=== PATIENT | female | born 1960 | race Caucasian/White ===

== ENCOUNTER 2016-06-19 22:16 | Inpatient (IN) ==
[2016-06-19 23:02] LABS: Basophils # 0.1 K/mcL (0.0-0.2); Basophils % 0.8 %; Eosinophils # 0.2 K/mcL (0.0-0.6); Hematocrit 41.9 % (35.3-44.9); Immature Granulocytes % 0.4 % (0-4); Lymphocytes # 4.7 K/mcL (0.6-4.6); Lymphocytes % 39.5 %; Mean Corpuscular HGB Conc 33.4 g/dL (31.6-35.5); Mean Corpuscular Hemoglobin 29.1 pg (28.0-33.3); Mean Corpuscular Volume 87.1 fL (83.0-100.0); Mean Platelet Volume 10.8 fL (9.4-12.4); Monocytes # 0.8 K/mcL (0.0-1.3); Monocytes % 6.5 %; Neutrophils # 6.1 K/mcL (1.6-8.9); Platelet Count 313 K/mcL (140-400); Red Blood Count 4.81 M/mcL (3.82-4.97); Red Cell Distribution Width 12.9 % (11.5-14.5); Segmented Neutrophils % 50.8 %
[2016-06-19 23:08] LABS: Prothrombin Time 11.1 Seconds (9.4-12.1)
[2016-06-19 23:10] LABS: Activated Partial Thrombo Time 25.1 Seconds (26.0-36.0)
[2016-06-19 23:18] LABS: Alanine Aminotransferase 10 Units/L (0-55); Albumin 3.1 g/dL (3.5-5.0); Albumin/Globulin Ratio 0.6 (1.1-2.2); Alkaline Phosphatase 67 Units/L (38-126); Aspartate Amino Transferase 17 Units/L (5-34); BUN/Creatinine Ratio 6 (6-26); Bilirubin,Total 0.3 mg/dL (0.2-1.2); Calcium 8.7 mg/dL (8.6-10.8); Carbon Dioxide 37 mEq/L (19-29); Chloride 90 mEq/L (98-109); Globulin 4.8 g/dL (2.4-3.5); Glucose 98 mg/dL (70-99); Osmolality,Calculated 285 (280-300); Sodium 139 mEq/L (136-145); Total Protein 7.9 g/dL (6.0-8.3); eGFR For African Americans > 60 (> 60); eGFR For Non-African Americans > 60 (> 60)
[2016-06-19 23:26] LABS: Blood Urea Nitrogen 4 mg/dL (7-20); Potassium 2.3 mEq/L (3.5-4.5)
[2016-06-19] MEDS ORDERED: Potassium Chloride 40 MEQ, Lidocaine 1% 2 ML in D5% in Water 500 ML IVPB ONE (23:31)
[2016-06-19 23:36] LABS: Magnesium 1.8 mg/dL (1.6-2.6)
--- NOTE | 2016-06-19 23:49 | Emergency Department Note ---
Disposition Clinical Impression: Hypokalemia Disposition: Admitted As Inpatient Condition: Good Referrals: Asad Tinajero PAC [Primary Care Provider] - Forms: ED Satisfaction Letter General Adult HPI - General Chief complaint: ED Upper Respiratory Infection Stated complaint: "Amanda had this cold for 3 months"//Chest congestion Time Seen by Provider: 06/19/16 22:36 Source: patient Limitations: no limitations Nursing Notes Reviewed: Yes Vital Signs Reviewed: Yes - History of Present Illness HPI Narrative: Patient presents complaint of cough and congestion shortness of breath has been going on for 3 months. Patient states feels like she has a cold that she just cannot shake. Patient denies chest pain denies fevers and chills. Patient is a cough this been nonproductive. Patient does admit to smoking but has decreased smoking secondary to symptoms. Patient denies any aggravating or alleviating factors associated. Pain Scale: 0 - Related Data Home Medications Medication Instructions Recorded Confirmed Diazepam [Valium] 5 mg PO 11/02/14 11/02/14 [place] 7.5-325 mg 11/02/14 11/02/14 Venlafaxine XR (24 HR) [Effexor XR] 11/02/14 11/02/14 Allergies Allergy/AdvReac Type Severity Reaction Status Date / Time No Known Allergies Allergy Verified 08/06/15 11:23 All systems ED: reviewed and negative except as stated. Past Medical History - Past Medical History Source: patient Medical history: Reports: hyperlipidemia, other Surgical history: Reports: hysterectomy Psychiatric history: Reports: depression, PTSD [employer] history: Reports: no [employer] history - Social History Smoking Status: Current every day smoker Smokeless Tobacco Status: No Alcohol use: Reports: none Drug use: Reports: none Physical Exam - General Limitations: no limitations General appearance: alert - Head Head exam: atraumatic, normocephalic, normal inspection - Eye Eye exam: Present: normal appearance, PERRL, EOMI - ENT ENT exam: normal exam, normal oropharynx, mucous membranes moist - Neck Neck exam: Present: normal inspection, full ROM, trachea midline - Chest Chest inspection: Present: normal inspection, symmetric chest wall rise - Respiratory Respiratory exam: Present: wheezes (mild diffuse wheezing) - Cardiovascular Cardiovascular exam: Present: regular rate, normal rhythm, normal heart sounds - Abdominal Exam Abdominal exam: Present: soft, Non-Tender. Absent: tenderness, distention, guarding, rebound, rigidity - Extremities Exam Extremities exam: Present: normal inspection, full ROM. Absent: tenderness, pedal edema - Back Exam Back exam: Present: normal inspection, full ROM. Absent: tenderness - Neurological Exam Neurological exam: Present: alert, oriented X3 - Psychiatric Psychiatric exam: Present: normal affect, normal mood - Skin Skin exam: Present: warm, dry, intact, normal color Course Vital Signs Temperature 97.4 F L 06/19/16 22:28 Pulse Rate 108 06/19/16 22:28 Respiratory Rate 14 06/19/16 22:28 Blood Pressure 147/81 06/19/16 22:28 O2 Sat by Pulse Oximetry 92 L 06/19/16 22:28 Temperature 97.4 F L 06/19/16 22:28 Pulse Rate 86 06/20/16 00:46 Respiratory Rate 22 06/20/16 00:46 Blood Pressure 131/75 06/20/16 00:46 O2 Sat by Pulse Oximetry 98 06/20/16 00:46 Oxygen Delivery Oxygen Delivery Nasal Cannula Medical Decision Making - Lab Data Result diagrams: 06/19/16 22:54 06/19/16 22:54 Lab Results 06/19/16 06/19/16 06/19/16 Range/Units 22:54 22:54 22:54 WBC 11.9 H (4.3-11.1) K/mcL RBC 4.81 (3.82-4.97) M/mcL Hgb 14.0 (11.5-15.4) g/dL Hct 41.9 (35.3-44.9) % MCV 87.1 (83.0-100.0) fL MCH 29.1 (28.0-33.3) pg MCHC 33.4 (31.6-35.5) g/dL RDW 12.9 (11.5-14.5) % Plt Count 313 (140-400) K/mcL MPV 10.8 (9.4-12.4) fL Immature Gran % 0.4 (0-4) % Seg Neutrophils % 50.8 % Lymphocytes % 39.5 % Monocytes % 6.5 % Eosinophils % 2.0 % Basophils % 0.8 % Neutrophils # 6.1 (1.6-8.9) K/mcL Lymphocytes # 4.7 H (0.6-4.6) K/mcL Monocytes # 0.8 (0.0-1.3) K/mcL Eosinophils # 0.2 (0.0-0.6) K/mcL Basophils # 0.1 (0.0-0.2) K/mcL PT 11.1 (9.4-12.1) Seconds INR 1.0 APTT 25.1 L (26.0-36.0) Seconds D-Dimer 764 H (0-500) ng/mLFEU Sodium 139 (136-145) mEq/L Potassium 2.3 L* (3.5-4.5) mEq/L Chloride 90 L (98-109) mEq/L Carbon Dioxide 37 H (19-29) mEq/L BUN 4 L (7-20) mg/dL Creatinine 0.69 (0.57-1.11) mg/dL Est GFR ( Amer) > 60 (> 60) Est GFR (Non-Af Amer) > 60 (> 60) BUN/Creatinine Ratio 6 (6-26) Glucose 98 (70-99) mg/dL Calculated Osmolality 285 (280-300) Lactic Acid (0.5-2.2) mmol/L Calcium 8.7 (8.6-10.8) mg/dL Magnesium 1.8 (1.6-2.6) mg/dL Total Bilirubin 0.3 (0.2-1.2) mg/dL AST 17 (5-34) Units/L ALT 10 (0-55) Units/L Alkaline Phosphatase 67 (38-126) Units/L Troponin I (0-0.03) ng/mL B-Natriuretic Peptide (0-100) pg/mL Serum Total Protein 7.9 (6.0-8.3) g/dL Albumin 3.1 L (3.5-5.0) g/dL Globulin 4.8 H (2.4-3.5) g/dL Albumin/Globulin Ratio 0.6 L (1.1-2.2) 06/19/16 06/19/16 06/19/16 Range/Units 22:54 22:54 22:54 WBC (4.3-11.1) K/mcL RBC (3.82-4.97) M/mcL Hgb (11.5-15.4) g/dL Hct (35.3-44.9) % MCV (83.0-100.0) fL MCH (28.0-33.3) pg MCHC (31.6-35.5) g/dL RDW (11.5-14.5) % Plt Count (140-400) K/mcL MPV (9.4-12.4) fL Immature Gran % (0-4) % Seg Neutrophils % % Lymphocytes % % Monocytes % % Eosinophils % % Basophils % % Neutrophils # (1.6-8.9) K/mcL Lymphocytes # (0.6-4.6) K/mcL Monocytes # (0.0-1.3) K/mcL Eosinophils # (0.0-0.6) K/mcL Basophils # (0.0-0.2) K/mcL PT (9.4-12.1) Seconds INR APTT (26.0-36.0) Seconds D-Dimer (0-500) ng/mLFEU Sodium (136-145) mEq/L Potassium (3.5-4.5) mEq/L Chloride (98-109) mEq/L Carbon Dioxide (19-29) mEq/L BUN (7-20) mg/dL Creatinine (0.57-1.11) mg/dL Est GFR ( Amer) (> 60) Est GFR (Non-Af Amer) (> 60) BUN/Creatinine Ratio (6-26) Glucose (70-99) mg/dL Calculated Osmolality (280-300) Lactic Acid 1.6 (0.5-2.2) mmol/L Calcium (8.6-10.8) mg/dL Magnesium (1.6-2.6) mg/dL Total Bilirubin (0.2-1.2) mg/dL AST (5-34) Units/L ALT (0-55) Units/L Alkaline Phosphatase (38-126) Units/L Troponin I 0.01 (0-0.03) ng/mL B-Natriuretic Peptide < 10 (0-100) pg/mL Serum Total Protein (6.0-8.3) g/dL Albumin (3.5-5.0) g/dL Globulin (2.4-3.5) g/dL Albumin/Globulin Ratio (1.1-2.2) - Radiology Data Radiology results reviewed: Yes I reviewed the patient's radiology results. Chest X-Ray 06/19/16 22:33 IMPRESSION: Chronic pleural thickening at the left lung base, stable. No acute cardiopulmonary disease. D/ / Shelton Washington MD / Shelton Washington MD Interpreting Provider: Shelton Washington MD Chest CTA 06/20/16 23:30 IMPRESSION: 1. No evidence of pulmonary embolism or acute pulmonary abnormality. 2. Two mildly enlarged right hilar lymph nodes. D/ / Joseluis Inman MD / Joseluis Inman MD Interpreting Provider: Joseluis Inman MD - EKG Data EKG #1 EKG attestation: Yes I reviewed and interpreted this EKG. EKG results narrative: Mild ST depression in inferior leads when compared to previous EKG performed November 2014 EKG shows normal: sinus rhythm Rate: normal Rhythm: NSR Critical Care Time Total Critical Care Time: 30 Attestation: Critical care performed: Time is exclusive of separately billable procedures. Time includes: direct patient care, patient reassessment, coordination of patient care, interpretation of data (laboratory data, radiology data, and respiratory data), review of patient's medical records, medical consultation and documentation of patient care. Procedures included in critical care time: Procedures excluded from critical care time:
--- NOTE | 2016-06-20 01:59 | Internal Med History&Physical ---
<Demarco Starkey - Last Filed: 06/20/16 03:14> Date of Encounter: 06/20/16 Time of Encounter: 01:20 Assessment and Plan (1) Hypokalemia Current visit: Yes Status: Acute Patient presents with a potassium of 2.3, likely contributing to her described fatigue over the last couple months. Although she has been having some fatigue , she denies any weakness, palpitations, or dizziness. This is suggestive that the process causing her loss of potassium is more chronic in nature than it is acute. She denies diuretic usage, denies recent diarrhea, denies recent gastroenteritis , and does not appear to have any overt sign of possible GI losses of potassium. Although chest x-ray and CTA were negative for acute process, pleural thickening and mild hilar lymphadenopathy were noted. With her history of smoking there is a possibility of a paraneoplastic process causing excess secretion of mineralocorticoid. She has been having some hypertension, and her EKG showed general T-wave flattening in 1 U wave in one beat, and one lead. Lab work showed potassium of 2.3, chloride of 90, and serum bicarbonate of 37. Because of the suspicion of chronic CO2 retention with metabolic compensation, is difficult to interpret her bicarbonate level in relation to her hypokalemia, though a renal tubular acidosis is not out of the question (and might be contributing) more lab work will need to be done. With a constellation of hypokalemia and hypertension there is also concern for hyperaldosteronism. She also states that her brother has had some sort of electrolyte deficiency that led to him being on life support for a period of time. With this information the possibility of a familial aberrant receptor in the renal tubules is a possibility as well. Patient received 40 mEq IV and 40 mEq by mouth potassium emergency department We will recheck potassium levels in the morning, and replete potassium as indicated We will recheck magnesium in the morning We will place patient on telemetry because of concern of electrolyte abnormalities We will obtain urine electrolytes studies including: Creatinine, potassium, sodium We will also obtain urine protein creatinine ratio, microalbumin, and UA We will obtain aldosterone, cortisol, TSH, and renin activity Consider nephrology consult if workup indicates renal tubular acidosis contribution to hypokalemia (2) Hypoxia Current visit: Yes Status: Acute Patient reports difficulty breathing and cough for the past 3 months, with apparent worsening in the past week and a half. She states that her difficulty breathing is exacerbated by cold matter cough is nonproductive (release productive of clear mucus). She does report having restarted smoking 2-3 years ago of 1 pack per day, after having previously quit 20+ years ago. Patient subjectively has difficulty breathing, and has been shown to have oxygen saturation in the low 90s while on 2 L nasal cannula (patient does not use supplemental oxygen at home) and wheezing auscultated on exam. Chest x-ray and CTA-Chest were negative for acute processes. Patient hypoxia likely multifactorial, from smoking history and possible viral illness. Likely there is some degree of chronic respiratory acidosis given her apparent retention of CO2 and her serum. We will obtain ABG We will obtain respiratory infection panel Scheduled and as needed DuoNeb treatments 40 mg prednisone daily Continue his pulse oximetry (3) Depression Current visit: Yes Status: Acute Patient has history of depression, currently on venlafaxine that appears to be working. Continue home venlafaxine Qualifiers: Depression Type: major depressive disorder Major depression recurrence: recurrent Active/Remission status: remission status unspecified Qualified Code(s): F33.9 - Major depressive disorder, recurrent, unspecified (4) Vitamin deficiency Current visit: Yes Status: Acute Patient has history of deficiencies and vitamin B12, folic acid, and vitamin D3. She is on supplementation for these vitamins, last lab work located in both [facility] and [place] are from 2 years ago. We will recheck levels of vitamin B12, folic acid, vitamin D3 Continue supplementation deficient (5) DVT prophylaxis Current visit: Yes Status: Acute 5000 units heparin 3 times a day Internal Medicine - H&P: HPI Chief complaint: "Not feeling well" Admitted From: Home Plans for Post Hospital Care: Home History of present illness: Ms. Argueta is a 55 year old female with prior medical history of depression, B12, folate, and vitamin D deficiencies presents to the emergency room due to worsening of her cough and shortness of breath that have been going on for 3 months. She states that 3 months ago she developed a cough, shortness of breath , and fatigue. She states the cough is nonproductive or maybe productive of clear sputum, no shortness of breath is mild in general, she states the fatigue causes her to want to sleep after mild exertion. All of his going on for 3 months, she states that it has become worse the past week and half. She states the past week and a half her cough and shortness of breath have been exacerbated or cold, despite feeling well in room temperatures. She states that in the past 3 months she has had some nausea, but none recently. She states that her nausea controlled her to try an [id number] medication ( she is not sure which one) because her emesis and diarrhea, after which she no longer took. This event occurred over a month ago. She denies chest pain, denies polyuria, denies diarrhea, denies emesis, denies unusual bleeding/ bruising, she does report having the occasional night sweats but not in any consistent/uniform manner. She reports that she restarted smoking 2-3 years ago after having a hiatus for 20+ years. She smokes one pack a day and that she started smoking again due to stresses going on in life. After seeing her lab work in the emergency room that showed a critically low potassium of 2.3, she was asked regarding a potential workup should have this in the past. She denies having a workup for the potassium, but indicates that she has been worked up for the other vitamin deficiencies mentioned. She also states that her brother spent a period of time on life-support due to an unknown electrolyte deficiency. Past Med Surg Social Fam HX - Past Medical History Medical history: hyperlipidemia, other Psychiatric history: depression, PTSD - Past Surgical History Surgical History: hysterectomy - Social History Smoking Status: Current every day smoker Smokeless Tobacco Status: No Alcohol use: none Drug use: none - Family History Mother Age: 77 Cause of : "stress" Hx Family Cardiac Disorders: Yes Hx Family Genitourinary Disorders: Yes (Kidney stones/UTI) Hx Family Neuromuscular Disorders: Yes (stroke) Brother Hx Family Medical Disorders: Yes (Unknown electrolyte deficiency) Internal Medicine - H&P: Meds Diazepam [Valium] 5 mg PO TID PRN 11/02/14 [History] Venlafaxine XR (24 HR) [Effexor XR] 150 mg PO DAILY 11/02/14 [History] Buprenorphine HCl [Subutex] 8 mg PO BID 06/20/16 [History] Allergies No Known Allergies Allergy (Verified 08/06/15 11:23) - Constitutional Constitutional: fatigue, fever(s), lethargy, night sweats (Periodic), no chills , no weakness, no weight gain, no weight loss - EENT Eyes: no change in vision, no diplopia Nose, mouth and throat: no dysphagia, no nasal discharge, no neck pain, no sore throat - Cardiovascular Cardiovascular ROS IM: no chest pain, no diaphoresis, no dyspnea, no lightheadedness, no palpitations - Respiratory Respiratory: as per HPI, cough, dyspnea, no hemoptysis, no dyspnea on exertion, no wheezing, no pain on inspiration, no change in phlegm color, no pain with cough - Gastrointestinal Gastrointestinal: constipation, no abdominal pain, no coffee ground emesis, no diarrhea, no hematemesis, no hematochezia, no nausea, no vomiting - Genitourinary Genitourinary: no dysuria, no hematuria - Musculoskeletal Musculoskeletal ROS IM: no numbness, no tingling - Integumentary Integumentary IM: no pruritus, no rash, no unusual bruising - Neurological Neurological ROS: no confusion, no convulsions, no dizziness, no focal weakness , no numbness, no tingling, no tremor(s), no weakness - Endocrine Endocrine IM: no cold intolerance, no excessive sweating, no flushing, no heat intolerance, no polyuria - Hematologic/Lymphatic Hematologic/Lymphatic: no lymphadenopathy - Constitutional Vitals: Temp Pulse Resp BP Pulse Ox 97.4 F L 86 18 136/85 98 06/19/16 22:28 06/20/16 00:46 06/20/16 01:27 06/20/16 01:27 06/20/16 00:46 Exam: General: Cooperative, pleasant, no acute distress, alert and oriented 3, answers questions appropriately, strong smell of tobacco smoke Head: Normocephalic, atraumatic Eye: Conjunctiva pink, sclera anicteric, EOMI, PERRL Neck: Supple, trachea midline, mucosa moist, no erythema or exudates in oropharynx, no anterior cervical LAD Respiratory: No accessory muscle usage, decreased breath sounds, mild, diffuse wheezes auscultated Cardiovascular: Regular rate and rhythm, S1 and S2 present, no murmurs/rubs/ gallops/clicks appreciated GI/abdominal: Nondistended, nontender, soft, normal bowel sounds, no peritoneal signs Extremities: No calf tenderness, noncyanotic, no pedal edema appreciated, warm, lower extremity pulses palpable and symmetrical Neurological: Alert and oriented 3, no facial droop, no focal deficits, 5/5 strength in upper and lower extremities bilaterally Skin: Dry, intact, normal color Internal Med - H&P Results - Labs CBC & Chem 7: 06/19/16 22:54 06/19/16 22:54 - Impressions ITS Impressions Chest CTA 06/20/16 23:30 IMPRESSION: 1. No evidence of pulmonary embolism or acute pulmonary abnormality. 2. Two mildly enlarged right hilar lymph nodes. D/ / Joseluis Inman MD / Joseluis Inman MD Interpreting Provider: Joseluis Inman MD <PedersenAlverto Jey - Last Filed: 06/21/16 06:55> Assessment and Plan (1) URI with cough and congestion Current visit: Yes Status: Acute . (2) Nicotine dependence with nicotine-induced disorder Current visit: Yes Status: Chronic . Qualifiers: Nicotine product type: cigarettes Qualified Code(s): F17.219 - Nicotine dependence, cigarettes, with unspecified nicotine-induced disorders (3) Heavy cigarette smoker (20-39 per day) Current visit: Yes Status: Chronic . (4) FHx: chronic obstructive pulmonary disease Current visit: Yes Status: Chronic . (5) Post traumatic stress disorder (PTSD) Current visit: Yes Status: Chronic . (6) Anxiety associated with depression Current visit: Yes Status: Chronic . (7) Osteoarthritis involving multiple joints on both sides of body Current visit: Yes Status: Chronic . (8) Chronic pain associated with significant psychosocial dysfunction Current visit: Yes Status: Chronic . (9) Acute bronchitis and bronchiolitis Current visit: Yes Status: Acute . (10) Acute respiratory failure with hypoxia and hypercapnia Current visit: Yes Status: Acute . Internal Medicine - H&P: HPI History of present illness: Ms. Argueta is a 55 year old female admitted to [facility] via the emergency department when she presented with a 3 month history of chest congestion and symptoms of upper respiratory tract infection accompanied by increasing degrees of labored breathing. The presentation however proved to be more complicated with evidence of a critically low serum potassium measurement with indices are worrisome for a gradually progressive hyperaldosteronism and possible renal tubular acidemia and hypercapnic- hypoxic respiratory insufficiency in setting of apparent acute bronchitis-bronchiolitis exacerbation. As well as yet to be formally defined chronic obstructive pulmonary disease. She acknowledges a significant family history of multiple members afflicted with oxygen-dependent COPD, as well as her own history of heavy tobacco abuse. A comprehensive evaluation will be pursued. Patient was visited and interviewed and examined. I examined this patient and my medical decision-making was reviewed with the Resident Physician, Dr. Demarco Starkey. For this encounter, I have reviewed the documentation, treatment plan, and medical decision making. I agree with the documented findings, disposition and treatment plan as described except to the extent set forth below. Cumulative laboratory and radiographic database was reviewed, considered and discussed. Given the patient's presenting concerns, past medical history, clinical findings and symptoms, she is admitted at this time to undergo further evaluation and disposition. Past Med Surg Social Fam HX - Past Medical History Source: old records reviewed Medical history: arthritis, hyperlipidemia, other Psychiatric history: anxiety, depression, PTSD, other All Systems PM: A 10-system review of systems was performed and is negative for pertinent findings except as documented above in the HPI. - Constitutional Vitals: Temp Pulse Resp BP Pulse Ox 97.7 F 87 17 119/73 97 06/20/16 19:08 06/20/16 19:08 06/20/16 19:08 06/20/16 19:08 06/20/16 19:08 Vital Signs Temp Pulse Resp BP Pulse Ox 06/20/16 19:08 97.7 F 87 17 119/73 97 06/20/16 15:10 98.0 F 80 16 97/60 97 06/20/16 12:06 98.0 F 84 16 99/64 94 L 06/20/16 10:18 18 99 06/20/16 09:50 16 97 06/20/16 09:05 92 L 06/20/16 07:50 98.0 F 89 16 97/60 92 L 06/20/16 03:53 18 96 06/20/16 02:32 92 L 06/20/16 02:04 97.9 F 91 20 153/82 92 L 06/20/16 01:27 18 136/85 06/20/16 00:46 86 22 131/75 98 06/20/16 00:20 94 18 137/79 96 06/19/16 23:54 82 22 142/67 99 06/19/16 22:40 99 22 140/80 88 L 06/19/16 22:28 97.4 F L 108 14 147/81 92 L Intake and Output 06/20/16 06/20/16 06/20/16 07:59 15:59 23:59 Output Total 600 / 600 Balance -600 / -600 Output: Urine 600 / 600 Internal Med - H&P Results - Labs CBC & Chem 7: 06/21/16 04:56 06/21/16 04:56 Labs: BMP 06/20/16 14:58 Potassium 4.1 Short CBC 06/20/16 06/19/16 Range/Units 04:35 22:54 WBC 12.0 H 11.9 H (4.3-11.1) K/mcL Hgb 13.2 14.0 (11.5-15.4) g/dL Hct 40.0 41.9 (35.3-44.9) % Plt Count 291 313 (140-400) K/mcL Neutrophils # 5.6 6.1 (1.6-8.9) K/mcL BMP 06/20/16 06/20/16 06/20/16 Range/Units 14:58 07:37 04:35 Sodium 142 (136-145) mEq/L Potassium 4.1 3.2 L 2.4 L* (3.5-4.5) mEq/L Chloride 94 L (98-109) mEq/L Carbon Dioxide 40 H* (19-29) mEq/L BUN 3 L (7-20) mg/dL Creatinine 0.68 (0.57-1.11) mg/dL Glucose 94 (70-99) mg/dL Calcium 8.8 (8.6-10.8) mg/dL 06/19/16 Range/Units 22:54 Sodium 139 (136-145) mEq/L Potassium 2.3 L* (3.5-4.5) mEq/L Chloride 90 L (98-109) mEq/L Carbon Dioxide 37 H (19-29) mEq/L BUN 4 L (7-20) mg/dL Creatinine 0.69 (0.57-1.11) mg/dL Glucose 98 (70-99) mg/dL Calcium 8.7 (8.6-10.8) mg/dL Cardiac Enzymes 06/19/16 Range/Units 22:54 Troponin I 0.01 (0-0.03) ng/mL Liver Function 06/19/16 Range/Units 22:54 Total Bilirubin 0.3 (0.2-1.2) mg/dL AST 17 (5-34) Units/L ALT 10 (0-55) Units/L Alkaline Phosphatase 67 (38-126) Units/L Albumin 3.1 L (3.5-5.0) g/dL Urine 06/20/16 Range/Units 05:00 Urine Color Yellow (Yellow) Urine Clarity Clear (Clear) Urine pH 7.0 (5.0-8.0) pH Units Ur Specific [place] 1.019 (1.010-1.025) Urine Protein Negative (Neg-Trace) mg/dL Urine Glucose (UA) Normal (Normal) mg/dL Abnormal lab results WBC 12.0 K/mcL (4.3-11.1) H 06/20/16 04:35 Lymphocytes # 5.0 K/mcL (0.6-4.6) H 06/20/16 04:35 ESR 85 mm/hr (0-15) H 06/20/16 07:37 APTT 25.1 Seconds (26.0-36.0) L 06/19/16 22:54 D-Dimer 764 ng/mLFEU (0-500) H 06/19/16 22:54 ABG pH 7.46 pH Units (7.32-7.45) H 06/20/16 08:39 ABG pCO2 63 mmHg (35-45) H 06/20/16 08:39 ABG pO2 53 mmHg (85-104) L 06/20/16 08:39 ABG HCO3 44.8 mEQ/L (21-27) H 06/20/16 08:39 ABG Total CO2 46.7 mEq/L (20-26) H 06/20/16 08:39 ABG O2 Saturation 89 % (95-98) L 06/20/16 08:39 ABG Base Excess 17.7 mEq/L (-2.0 to 3.0) H 06/20/16 08:39 VBG pCO2 79 mmHg (41-51) H 06/20/16 04:35 VBG HCO3 50.1 mEq/L (21-27) H 06/20/16 04:35 Chloride 94 mEq/L (98-109) L 06/20/16 04:35 Carbon Dioxide 40 mEq/L (19-29) H* 06/20/16 04:35 BUN 3 mg/dL (7-20) L 06/20/16 04:35 BUN/Creatinine Ratio 4 (6-26) L 06/20/16 04:35 C-Reactive Protein 17 mg/L (Less than 5) H 06/20/16 07:37 Albumin 3.1 g/dL (3.5-5.0) L 06/19/16 22:54 Globulin 4.8 g/dL (2.4-3.5) H 06/19/16 22:54 Albumin/Globulin Ratio 0.6 (1.1-2.2) L 06/19/16 22:54 Vitamin B12 1584 pg/mL (213-816) H 06/20/16 04:35 TSH 5.768 mcIU/mL (0.350-4.840) H 06/20/16 04:35 Protein/Creatinin Ratio 0.33 mg/mg (0-0.20) H 06/20/16 05:00 Entero/Rhino (PCR) DETECTED (Not Detect) A 06/20/16 03:40 Laboratory Last Values WBC 12.0 K/mcL (4.3-11.1) H 06/20/16 04:35 RBC 4.55 M/mcL (3.82-4.97) 06/20/16 04:35 Hgb 13.2 g/dL (11.5-15.4) 06/20/16 04:35 Hct 40.0 % (35.3-44.9) 06/20/16 04:35 MCV 87.9 fL (83.0-100.0) 06/20/16 04:35 MCH 29.0 pg (28.0-33.3) 06/20/16 04:35 MCHC 33.0 g/dL (31.6-35.5) 06/20/16 04:35 RDW 13.1 % (11.5-14.5) 06/20/16 04:35 Plt Count 291 K/mcL (140-400) 06/20/16 04:35 MPV 10.7 fL (9.4-12.4) 06/20/16 04:35 Immature Gran % 0.3 % (0-4) 06/20/16 04:35 Seg Neutrophils % 46.9 % 06/20/16 04:35 Lymphocytes % 41.4 % 06/20/16 04:35 Monocytes % 8.1 % 06/20/16 04:35 Eosinophils % 2.6 % 06/20/16 04:35 Basophils % 0.7 % 06/20/16 04:35 Neutrophils # 5.6 K/mcL (1.6-8.9) 06/20/16 04:35 Lymphocytes # 5.0 K/mcL (0.6-4.6) H 06/20/16 04:35 Monocytes # 1.0 K/mcL (0.0-1.3) 06/20/16 04:35 Eosinophils # 0.3 K/mcL (0.0-0.6) 06/20/16 04:35 Basophils # 0.1 K/mcL (0.0-0.2) 06/20/16 04:35 ESR 85 mm/hr (0-15) H 06/20/16 07:37 PT 11.1 Seconds (9.4-12.1) 06/19/16 22:54 INR 1.0 06/19/16 22:54 APTT 25.1 Seconds (26.0-36.0) L 06/19/16 22:54 D-Dimer 764 ng/mLFEU (0-500) H 06/19/16 22:54 ABG pH 7.46 pH Units (7.32-7.45) H 06/20/16 08:39 ABG pCO2 63 mmHg (35-45) H 06/20/16 08:39 ABG pO2 53 mmHg (85-104) L 06/20/16 08:39 ABG HCO3 44.8 mEQ/L (21-27) H 06/20/16 08:39 ABG Total CO2 46.7 mEq/L (20-26) H 06/20/16 08:39 ABG O2 Saturation 89 % (95-98) L 06/20/16 08:39 ABG Base Excess 17.7 mEq/L (-2.0 to 3.0) H 06/20/16 08:39 VBG pH 7.41 pH Units (7.32-7.42) 06/20/16 04:35 VBG pCO2 79 mmHg (41-51) H 06/20/16 04:35 VBG pO2 30 mmHg (25-40) 06/20/16 04:35 VBG HCO3 50.1 mEq/L (21-27) H 06/20/16 04:35 Blood Gas Modality RA 06/20/16 08:39 Inspired O2 21 % 06/20/16 08:39 Sodium 142 mEq/L (136-145) 06/20/16 04:35 Potassium 4.1 mEq/L (3.5-4.5) 06/20/16 14:58 Chloride 94 mEq/L (98-109) L 06/20/16 04:35 Carbon Dioxide 40 mEq/L (19-29) H* 06/20/16 04:35 BUN 3 mg/dL (7-20) L 06/20/16 04:35 Creatinine 0.68 mg/dL (0.57-1.11) 06/20/16 04:35 Est GFR ( Amer) > 60 (> 60) 06/20/16 04:35 Est GFR (Non-Af Amer) > 60 (> 60) 06/20/16 04:35 BUN/Creatinine Ratio 4 (6-26) L 06/20/16 04:35 Glucose 94 mg/dL (70-99) 06/20/16 04:35 Est Mean Plasma Glucose 108 mg/dl 06/20/16 04:35 Hemoglobin A1c 5.4 % (-5.6) 06/20/16 04:35 Calculated Osmolality 290 (280-300) 06/20/16 04:35 Lactic Acid 1.0 mmol/L (0.5-2.2) 06/20/16 07:37 Calcium 8.8 mg/dL (8.6-10.8) 06/20/16 04:35 Phosphorus 3.1 mg/dL (2.3-4.7) 06/20/16 04:35 Magnesium 1.7 mg/dL (1.6-2.6) 06/20/16 04:35 Total Bilirubin 0.3 mg/dL (0.2-1.2) 06/19/16 22:54 AST 17 Units/L (5-34) 06/19/16 22:54 ALT 10 Units/L (0-55) 06/19/16 22:54 Alkaline Phosphatase 67 Units/L (38-126) 06/19/16 22:54 Troponin I 0.01 ng/mL (0-0.03) 06/19/16 22:54 C-Reactive Protein 17 mg/L (Less than 5) H 06/20/16 07:37 B-Natriuretic Peptide < 10 pg/mL (0-100) 06/19/16 22:54 Serum Total Protein 7.9 g/dL (6.0-8.3) 06/19/16 22:54 Albumin 3.1 g/dL (3.5-5.0) L 06/19/16 22:54 Globulin 4.8 g/dL (2.4-3.5) H 06/19/16 22:54 Albumin/Globulin Ratio 0.6 (1.1-2.2) L 06/19/16 22:54 Vitamin B12 1584 pg/mL (213-816) H 06/20/16 04:35 Folate 14.3 ng/mL (7.0-31.4) 06/20/16 04:35 TSH 5.768 mcIU/mL (0.350-4.840) H 06/20/16 04:35 Free T4 0.85 ng/dl (0.70-1.48) 06/20/16 07:37 Free T3 2.71 pg/mL (1.71-3.71) 06/20/16 07:37 Random Cortisol 3.4 mcg/dl 06/20/16 04:35 Urine Color Yellow (Yellow) 06/20/16 05:00 Urine Clarity Clear (Clear) 06/20/16 05:00 Urine pH 7.0 pH Units (5.0-8.0) 06/20/16 05:00 Ur Specific [place] 1.019 (1.010-1.025) 06/20/16 05:00 Urine Protein Negative mg/dL (Neg-Trace) 06/20/16 05:00 Urine Glucose (UA) Normal mg/dL (Normal) 06/20/16 05:00 Urine Ketones Negative mg/dL (Negative) 06/20/16 05:00 Urine Blood Negative (Negative) 06/20/16 05:00 Urine Nitrite Negative (Negative) 06/20/16 05:00 Urine Bilirubin Negative (Negative) 06/20/16 05:00 Urine Urobilinogen Normal mg/dL (Normal) 06/20/16 05:00 Ur Leukocyte Esterase Negative (Negative) 06/20/16 05:00 Ur Culture Indicated? NO (NO) 06/20/16 05:00 Urine Creatinine 21 mg/dL 06/20/16 05:00 Urine Microalbumin < 5 mg/L 06/20/16 05:00 Microalb/Creat Ratio 24 (0-30) 06/20/16 05:00 Protein/Creatinin Ratio 0.33 mg/mg (0-0.20) H 06/20/16 05:00 Urine Sodium 23.0 mEq/L 06/20/16 05:00 Urine Potassium < 10.0 mEq/L 06/20/16 05:00 Urine Total Protein < 7 mg/dL (1-14) 06/20/16 05:00 Chlamy pneumoniae PCR Not Detected (Not Detect) 06/20/16 03:40 Adenovirus (PCR) Not Detected (Not Detect) 06/20/16 03:40 B. pertussis DNA (PCR) Not Detected (Not Detect) 06/20/16 03:40 Coronavirus OC43 (PCR) Not Detected (Not Detect) 06/20/16 03:40 Coronavirus HKU1 (PCR) Not Detected (Not Detect) 06/20/16 03:40 Coronavirus 229E (PCR) Not Detected (Not Detect) 06/20/16 03:40 Coronavirus NL63 (PCR) Not Detected (Not Detect) 06/20/16 03:40 Human Metapneumovirus Not Detected (Not Detect) 06/20/16 03:40 Influenza A (H1) PCR Not Detected (Not Detect) 06/20/16 03:40 Influ A (H1N1/09) PCR Not Detected (Not Detect) 06/20/16 03:40 Influenza A (H3) PCR Not Detected (Not Detect) 06/20/16 03:40 Influenza A Untype (PCR) Not Detected (Not Detect) 06/20/16 03:40 Influenza Type B (PCR) Not Detected (Not Detect) 06/20/16 03:40 M.pneumoniae DNA (PCR) Not Detected (Not Detect) 06/20/16 03:40 Parainfluenza 1 (PCR) Not Detected (Not Detect) 06/20/16 03:40 Parainfluenza 2 (PCR) Not Detected (Not Detect) 06/20/16 03:40 Parainfluenza 3 (PCR) Not Detected (Not Detect) 06/20/16 03:40 Parainfluenza 4 (PCR) Not Detected (Not Detect) 06/20/16 03:40 RSV (PCR) Not Detected (Not Detect) 06/20/16 03:40 Entero/Rhino (PCR) DETECTED (Not Detect) A 06/20/16 03:40 - Impressions ITS Impressions Chest CTA 06/20/16 23:30 IMPRESSION: 1. No evidence of pulmonary embolism or acute pulmonary abnormality. 2. Two mildly enlarged right hilar lymph nodes. D/ / 06/20/2016 07:19:21 Joseluis Inman MD / earl Interpreting Provider: Joseluis Inman MD Chest X-Ray 06/19/16 22:33 IMPRESSION: Chronic pleural thickening at the left lung base, stable. No acute cardiopulmonary disease. D/ / Shelton Washington MD / Shelton Washington MD Interpreting Provider: Shelton Washington MD Chest CTA 06/20/16 23:30 IMPRESSION: 1. No evidence of pulmonary embolism or acute pulmonary abnormality. 2. Two mildly enlarged right hilar lymph nodes. D/ / 06/20/2016 07:19:21 Joseluis Inman MD / earl Interpreting Provider: Joseluis Inman MD - Attending Attestation My signature below is to certify that this patient is under my care and that I, or the Resident Physician working with me, has had a [id number] encounter with this patient. Plan of care has been reviewed and discussed in detail with the patient. Questions were addressed. Advanced care directive discussion briefly addressed. The patient does not declare any healthcare restrictions at this time. Outpatient medication schedule was reviewed, confirmed and facilitated as appropriate. Reconciliation of home treatments including adjustments, substitutions and reintroduction into the treatment regimen we will address necessary maintenance therapies for chronic pre-existing medical conditions. Smoking cessation counseling was briefly addressed. The patient accepts nicotine substitution with this admission. Hospital course dictated by clinical findings, treatment response and potential consultative interventions. Consultative opinions will be sought as clinical circumstances justify. The patient is at risk for acute clinical decline and morbidity give presenting chief complaints, findings and comorbidities. Condition is serious. Prognosis is guarded. CODE STATUS is full.
[2016-06-20] MEDS ORDERED: Acetaminophen 325 MG TABLET PO PRN ×2 (02:01→02:15)
[2016-06-20] MEDS ORDERED: Ondansetron 4 MG/2 ML VIAL IVP PRN (02:01)
[2016-06-20] MEDS ORDERED: Naloxone 0.4 MG/ML INJ IVP PRN (02:01)
[2016-06-20] MEDS ORDERED: Ipratropium/Albuterol Neb 3 ML IH PRN (02:11)
[2016-06-20] MEDS ORDERED: Ipratropium/Albuterol Neb 3 ML IH SCH (04:00)
[2016-06-20 04:49] LABS: Basophils # 0.1 K/mcL (0.0-0.2); Basophils % 0.7 %; Eosinophils # 0.3 K/mcL (0.0-0.6); Eosinophils % 2.6 %; Hemoglobin 13.2 g/dL (11.5-15.4); Immature Granulocytes % 0.3 % (0-4); Lymphocytes % 41.4 %; Mean Corpuscular Volume 87.9 fL (83.0-100.0); Mean Platelet Volume 10.7 fL (9.4-12.4); Monocytes % 8.1 %; Neutrophils # 5.6 K/mcL (1.6-8.9); Platelet Count 291 K/mcL (140-400); Red Blood Count 4.55 M/mcL (3.82-4.97); Red Cell Distribution Width 13.1 % (11.5-14.5); Segmented Neutrophils % 46.9 %
[2016-06-20 04:59] LABS: VBG HCO3 50.1 mEq/L (21-27); VBG PH 7.41 pH Units (7.32-7.42)
[2016-06-20 05:01] LABS: Hemoglobin A1C 5.4 %
[2016-06-20 05:03] LABS: BUN/Creatinine Ratio 4 (6-26); Calcium 8.8 mg/dL (8.6-10.8); Chloride 94 mEq/L (98-109); Glucose 94 mg/dL (70-99); Magnesium 1.7 mg/dL (1.6-2.6); Osmolality,Calculated 290 (280-300); Phosphorous 3.1 mg/dL (2.3-4.7); Sodium 142 mEq/L (136-145); eGFR For African Americans > 60 (> 60); eGFR For Non-African Americans > 60 (> 60)
[2016-06-20 05:05] LABS: Blood Urea Nitrogen 3 mg/dL (7-20)
[2016-06-20 05:07] LABS: Carbon Dioxide 40 mEq/L (19-29); Potassium 2.4 mEq/L (3.5-4.5)
[2016-06-20 05:10] LABS: Bilirubin,Urine Negative (Negative); Blood,Urine Negative (Negative); Clarity,Urine Clear (Clear); Color,Urine Yellow (Yellow); Glucose,Urine (UA) Normal (Normal); Ketones,Urine Negative (Negative); Leukocyte Esterase,Urine Negative (Negative); Nitrite,Urine Negative (Negative); Protein,Urine Negative (Neg-Trace); Specific Gravity,Urine 1.019 (1.010-1.025); Urobilinogen,Urine Normal (Normal)
[2016-06-20] MEDS ORDERED: Potassium Chloride 40 MEQ, Lidocaine 1% 2 ML in D5% in Water 500 ML IVPB ONE (05:13)
[2016-06-20 05:15] LABS: Adenovirus Not Detected (Not Detect); Bordetella Pertussis Not Detected (Not Detect); Chlamydophila pneumoniae Not Detected (Not Detect); Coronavirus 229E Not Detected (Not Detect); Coronavirus HKU1 Not Detected (Not Detect); Coronavirus NL63 Not Detected (Not Detect); Coronavirus OC43 Not Detected (Not Detect); Human Metapneumovirus Not Detected (Not Detect); Human Rhinovirus/Enterovirus ***DETECTED*** (Not Detect); Influenza A Subtype 2009 H1 Not Detected (Not Detect); Influenza A Untypeable Not Detected (Not Detect); Influenza B Not Detected (Not Detect); Mycoplasma pneumoniae Not Detected (Not Detect); Parainfluenza Virus 1 Not Detected (Not Detect); Parainfluenza Virus 2 Not Detected (Not Detect); Parainfluenza Virus 3 Not Detected (Not Detect); Parainfluenza Virus 4 Not Detected (Not Detect); Respiratory Syncytial Virus Not Detected (Not Detect)
[2016-06-20 05:33] LABS: Creatinine,Urine 21 mg/dL
[2016-06-20 05:34] LABS: Creatinine,Urine 21 mg/dL; Microalbum/Creatinine Ratio,Ur 24 (0-30); Protein/Creatinine Ratio,Urine 0.33 mg/mg (0-0.20)
[2016-06-20 05:36] LABS: Microalbumin,Urine < 5 mg/L; Potassium,Urine < 10.0 mEq/L
[2016-06-20 05:40] LABS: Folate 14.3 ng/mL (7.0-31.4)
[2016-06-20] MEDS: *HR* Heparin 5,000 UNIT/ML VIAL SQ SCH ×3 (06:08→21:25)
[2016-06-20] MEDS: diazePAM 5 MG TABLET PO PRN ×2 (06:10→09:37)
[2016-06-20 06:51] LABS: Thyroid Stimulating Hormone 5.768 mcIU/mL (0.350-4.840)
[2016-06-20] MEDS ORDERED: Ringers Solution, Lactated 1,000 ML IVC ONE (07:32)
[2016-06-20] MEDS ORDERED: Albuterol 2.5 MG/3 ML NEBULIZER IH PRN (07:34)
[2016-06-20] MEDS ORDERED: 0.9 % Sodium Chloride w KCl 20 MEQ/1,000 ML MLS IVC SCH (07:45)
[2016-06-20 08:48] LABS: ABG Base Excess 17.7 mEq/L (-2.0 to 3.0); ABG HCO3 44.8 mEQ/L (21-27); ABG Oxygen Saturation 89 % (95-98); ABG PCO2 63 mmHg (35-45); ABG PH 7.46 pH Units (7.32-7.45); ABG PO2 53 mmHg (85-104); ABG TCO2 46.7 mEq/L (20-26)
[2016-06-20 08:49] LABS: Blood Gas FiO2 21 %
[2016-06-20 08:49] LABS: Triiodothyronine (T3) Free 2.71 pg/mL (1.71-3.71)
[2016-06-20] MEDS ORDERED: Potassium Chloride Elixir 20 MEQ/15 ML UDC PO SCH (09:00)
[2016-06-20] MEDS: Nicotine 21 MG PATCH.TD24 TD SCH (09:31)
[2016-06-20] MEDS: Venlafaxine XR (24 HR) 150 MG CAP.ER.24H PO SCH (09:31)
[2016-06-20] MEDS: *HR* OxyCODONE Immed Rel 5 MG TABLET PO PRN ×3 (09:32→16:29)
[2016-06-20] MEDS: predniSONE 20 MG TABLET PO SCH (09:32)
[2016-06-20] MEDS: Azithromycin 250 MG TABLET PO SCH (09:32)
[2016-06-20] MEDS: Ipratropium/Albuterol Neb 3 ML IH SCH ×3 (10:18→23:22)
--- NOTE | 2016-06-20 11:45 | Internal Med Progress Note ---
<Sharon Baird - Last Filed: 06/20/16 13:05> Date of Encounter: 06/20/16 Time of Encounter: 09:00 - Assessment and plan (1) Acute respiratory failure with hypoxia and hypercapnia Current Visit: Yes Status: Acute Assessment and plan: - As suggested by ABG and clinically presentation of shortness of breath. - Likely secondary to bronchitis (CXR doesn't suggest pneumonia) in the setting of possible COPD (from significant smoking history). - Start BiPAP and treat bronchitis with azithromycin. - Closely monitor respiratory status and ABG. (2) Hypokalemia Current Visit: Yes Status: Acute Assessment and plan: - K at 2.3 on initial presentation. - Likely secondary to transcellular shift of K+ into cells induced by current alkalosis. This is further supported by the finding of low urine Potassium. - K 3.2 this morning after IV & PO. - Will hold K supplement for now given this is pseudohypokalemia and the serum K level will likely correct rapidly after correcting metabolic alkalosis by treating current hypoxic & hypercapnic respiratory failure with BiPAP. - Closely monitor K. (3) Metabolic alkalosis Current Visit: Yes Status: Acute Assessment and plan: - As suggested by ABG and chemistry. - Likely secondary to hypercapnic respiratory failure.. - Contributes to current hypokalemia by inducing serum K+ influx into cells. - Closely monitor with ABG and chemistry. (4) Bronchitis Current Visit: Yes Status: Acute Assessment and plan: - Most likely viral given positive PCR for Entero/Rhino virus - CXR on admission doesn't suggest pneumonia. - Start azithromycin for possible co-infection by bacteria. (5) DVT prophylaxis Current Visit: Yes Status: Acute Assessment and plan: - SQ heparin. - Subjective Interval history: This note is just an update since admission after midnight and NOT for billing purpose. 55 yo female with PMH of depression and tobacco abuse presented with worsening cough and shortness of breath. Patient was noted to have O2 sat 88% and potassium of 2.3 in ED. Patient was admitted on 06/20 for hypoxic & hypercapnic respiratory failure and hypokalemia. Patient received KCl via IV & PO. Patient was seen and examined this morning. Patient reports shortness of breath better compared to before. She also has cough with occasional yellow sputum. She denies fever, chills, chest pain, abdominal pain, nausea, vomiting, diarrhea, dysuria, polyuria. Patient denies known diagnosis of pulmonary disease such as COPD or asthma. - Constitutional Vitals: Temp Pulse Resp BP Pulse Ox 98.0 F 89 16 97/60 92 L 06/20/16 07:50 06/20/16 07:50 06/20/16 07:50 06/20/16 07:50 06/20/16 09:05 - Head Head exam: Present: atraumatic, normocephalic - Eye Eye exam: Present: PERRL, conjuntiva pink, sclera anicteric Pupils: Present: PERRL - Neck Neck exam general surgery: Present: supple, trachea midline. Absent: lymphadenopathy - Respiratory Respiratory exam: Present: CTAB. Absent: accessory muscle use, rales, rhonchi, wheezes - Cardiovascular Cardiovascular exam: Present: RRR, +S1, +S2. Absent: diastolic murmur, gallop, rubs, systolic murmur - GI/Abdominal GI/Abdominal exam: Present: normal bowel sounds, soft, no peritoneal signs. Absent: distended, tenderness - Extremities Exam Extremities exam: Present: warm, radial pulses palpable and symetrical. Absent : calf tenderness, cyanotic, pedal edema - Neurological Exam Neurological exam: Present: CN II-XII intact, oriented X3, no focal deficits. Absent: pronater drift, facial droop, speech deficit - Skin Skin exam: Present: dry, intact Internal Medicine: Result - Labs CBC & Chem 7: 06/20/16 04:35 06/20/16 07:37 Labs: Short CBC 06/20/16 Range/Units 04:35 WBC 12.0 H (4.3-11.1) K/mcL Hgb 13.2 (11.5-15.4) g/dL Hct 40.0 (35.3-44.9) % Plt Count 291 (140-400) K/mcL Neutrophils # 5.6 (1.6-8.9) K/mcL BMP 06/20/16 06/20/16 04:35 07:37 Sodium 142 Potassium 2.4 L* 3.2 L Chloride 94 L Carbon Dioxide 40 H* BUN 3 L Creatinine 0.68 Glucose 94 Calcium 8.8 Urine 06/20/16 Range/Units 05:00 Urine Color Yellow (Yellow) Urine Clarity Clear (Clear) Urine pH 7.0 (5.0-8.0) pH Units Ur Specific [place] 1.019 (1.010-1.025) Urine Protein Negative (Neg-Trace) mg/dL Urine Glucose (UA) Normal (Normal) mg/dL - ABG Interpretation ABG results: ABG ABG pH 7.46 pH Units (7.32-7.45) H 06/20/16 08:39 ABG pCO2 63 mmHg (35-45) H 06/20/16 08:39 ABG pO2 53 mmHg (85-104) L 06/20/16 08:39 ABG O2 Saturation 89 % (95-98) L 06/20/16 08:39 PT/INR, D-dimer PT 11.1 Seconds (9.4-12.1) 06/19/16 22:54 D-Dimer 764 ng/mLFEU (0-500) H 06/19/16 22:54 - Impressions Impressions Chest CTA 06/20/16 23:30 IMPRESSION: 1. No evidence of pulmonary embolism or acute pulmonary abnormality. 2. Two mildly enlarged right hilar lymph nodes. D/ / 06/20/2016 07:19:21 Joseluis Inman MD / [email or web address] Interpreting Provider: Joseluis Inman MD Consult Discharge Plan - Plan Referrals: Asad Tinajero, PAC [Primary Care Provider] - <Rudy Porter T - Last Filed: 06/20/16 14:01> - Constitutional Vitals: Temp Pulse Resp BP Pulse Ox 98.0 F 84 16 99/64 94 L 06/20/16 12:06 06/20/16 12:06 06/20/16 12:06 06/20/16 12:06 06/20/16 12:06 Internal Medicine: Result - Labs CBC & Chem 7: 06/20/16 04:35 06/20/16 07:37 - ABG Interpretation ABG results: ABG ABG pH 7.46 pH Units (7.32-7.45) H 06/20/16 08:39 ABG pCO2 63 mmHg (35-45) H 06/20/16 08:39 ABG pO2 53 mmHg (85-104) L 06/20/16 08:39 ABG O2 Saturation 89 % (95-98) L 06/20/16 08:39 PT/INR, D-dimer PT 11.1 Seconds (9.4-12.1) 06/19/16 22:54 D-Dimer 764 ng/mLFEU (0-500) H 06/19/16 22:54 - Impressions Impressions Chest CTA 06/20/16 23:30 IMPRESSION: 1. No evidence of pulmonary embolism or acute pulmonary abnormality. 2. Two mildly enlarged right hilar lymph nodes. D/ / 06/20/2016 07:19:21 Joseluis Inman MD / [email or web address] Interpreting Provider: Joseluis Inman MD - Attending Attestation I examined this patient and my medical decision-making was reviewed with the WET PROCESS MILLER HEAD/PA/Advanced Practice Nurse/Resident Physician. I agree with the documented findings, disposition and treatment plan as described except to the extent set forth below. 55 Y/O F with HTN, Depression, Vitamin B12 and Folate deficiency admitted for URI symptoms and hypokalemia. Patient has no diarrhea and is not on diuretics. Seen at bedside, denied new complains, Physical exam unremarkable, no wheezing, VSS, Alert, awake, oriented, no skin rash, no pedal edema Labs and Imaging reviewed: Hypercapnea, contraction metabolic alkalosis, hypokalemia with K 2.4 (despite replacements). Urine potassium is 10. CTA with bilateral right hilar node enlargement. Assessment/Plan: Acute hypercapneic and hypoxic respiratory failure secondary to bronchitis, Hypokalemia due to extracellular shift from metabolic alkalosis as a compensation of respiratory acidosis from possible COPD and Bronchitis. Stop all potassium replacements for now, place patient on BiPAP, and give 1 L LR , repeat chem at p.m. Place on telemetry. Blood pressure is acceptable for now, will start on Norvasc 5-10mg po prn. Rest of documentation as in residents documentation
--- NOTE | 2016-06-20 13:12 | Electrocardiograph Report ---
[address] [address] Test Date: 2016-06-19 Pat Name: Caterina Argueta Department: 103 Room: 3B45 Gender: F Bell Attendant: : 1960 Requested By: Froy Preston Order Number: [id number] Reading MD: Tomi Heard Measurements Intervals [place] Rate: 89 P: 78 OK: 162 QRS: 38 QRSD: 88 T: 67 QT: 289 QTc: 336 Interpretive Statements SINUS RHYTHM NONSPECIFIC T-WAVE ABNORMALITY Electronically Signed On 06-20-2016 13:11:18 EDT by Tomi Heard
[2016-06-21] MEDS: Ipratropium/Albuterol Neb 3 ML IH SCH ×4 (04:58→23:45)
[2016-06-21 05:37] LABS: Basophils # 0.1 K/mcL (0.0-0.2); Basophils % 0.4 %; Hematocrit 39.7 % (35.3-44.9); Hemoglobin 12.8 g/dL (11.5-15.4); Immature Granulocytes % 0.4 % (0-4); Lymphocytes # 3.5 K/mcL (0.6-4.6); Lymphocytes % 26.6 %; Mean Corpuscular HGB Conc 32.2 g/dL (31.6-35.5); Mean Corpuscular Hemoglobin 28.6 pg (28.0-33.3); Mean Corpuscular Volume 88.8 fL (83.0-100.0); Mean Platelet Volume 11.6 fL (9.4-12.4); Monocytes # 0.9 K/mcL (0.0-1.3); Monocytes % 7.1 %; Neutrophils # 8.5 K/mcL (1.6-8.9); Platelet Count 307 K/mcL (140-400); Red Blood Count 4.47 M/mcL (3.82-4.97); Red Cell Distribution Width 13.4 % (11.5-14.5); Segmented Neutrophils % 65.5 %
[2016-06-21 05:53] LABS: Alanine Aminotransferase 8 Units/L (0-55); Albumin 2.6 g/dL (3.5-5.0); Albumin/Globulin Ratio 0.6 (1.1-2.2); Alkaline Phosphatase 58 Units/L (38-126); Aspartate Amino Transferase 13 Units/L (5-34); BUN/Creatinine Ratio 13 (6-26); Bilirubin,Total 0.1 mg/dL (0.2-1.2); Blood Urea Nitrogen 8 mg/dL (7-20); Calcium 8.7 mg/dL (8.6-10.8); Carbon Dioxide 31 mEq/L (19-29); Chloride 102 mEq/L (98-109); Chol/HDL Ratio 5.4 (0-4.9); Cholesterol 236 mg/dL (< 200); Globulin 4.4 g/dL (2.4-3.5); Glucose 93 mg/dL (70-99); HDL Cholesterol 44 mg/dL (40-59); LDL Cholesterol,Calculated 165 mg/dL (0-99); Magnesium 1.6 mg/dL (1.6-2.6); Osmolality,Calculated 294 (280-300); Phosphorous 3.7 mg/dL (2.3-4.7); Potassium 3.2 mEq/L (3.5-4.5); Sodium 143 mEq/L (136-145); Triglycerides 135 mg/dL (< 150); eGFR For African Americans > 60 (> 60); eGFR For Non-African Americans > 60 (> 60)
[2016-06-21 05:58] LABS: Amphetamine Screen,Urine Negative ng/mL (Cutoff=1000); Barbiturate Screen,Urine Negative ng/mL (Cutoff=200); Benzodiazepines Screen,Urine Negative ng/mL (Cutoff=200); Cannabinoid Screen,Urine Negative ng/mL (Cutoff = 50); Cocaine Screen,Urine Negative ng/mL (Cutoff= 300); Opiate Screen,Urine Negative ng/mL (Cutoff=300); Phencyclidine Screen,Urine Negative ng/mL (Cutoff=25)
[2016-06-21] MEDS: *HR* OxyCODONE Immed Rel 5 MG TABLET PO PRN ×2 (06:36→18:08)
[2016-06-21] MEDS: *HR* Heparin 5,000 UNIT/ML VIAL SQ SCH ×3 (06:52→22:23)
[2016-06-21] MEDS ORDERED: 0.9 % Sodium Chloride 1,000 ML IVC ONE ×2 (07:50→08:39)
[2016-06-21] MEDS: predniSONE 20 MG TABLET PO SCH (09:09)
[2016-06-21] MEDS: Nicotine 21 MG PATCH.TD24 TD SCH (09:09)
[2016-06-21] MEDS: Azithromycin 250 MG TABLET PO SCH (09:09)
[2016-06-21] MEDS: Venlafaxine XR (24 HR) 150 MG CAP.ER.24H PO SCH (09:10)
--- NOTE | 2016-06-21 10:52 | Internal Med Progress Note ---
<Sharon Baird - Last Filed: 06/21/16 15:03> Date of Encounter: 06/21/16 Time of Encounter: 09:30 - Assessment and plan (1) Acute respiratory failure with hypoxia and hypercapnia Current Visit: Yes Status: Acute Assessment and plan: - As suggested by initial ABG and clinically presentation of shortness of breath. - Likely secondary to bronchitis (CXR doesn't suggest pneumonia) in the setting of possible COPD (from significant smoking history). - Improves given pCO2 decreases on VBG. - Continue BiPAP (if patient can tolerate). - Treat bronchitis with azithromycin. - Closely monitor respiratory status and chemistry. (2) Hypokalemia Current Visit: Yes Status: Acute Assessment and plan: - K at 2.3 on initial presentation. - Likely secondary to transcellular shift of K+ into cells induced by current alkalosis. This is further supported by the finding of low urine Potassium. - Once improved to 4.1 after receiving 120 meq or more of KCl yesterday. But K decreases to 3.2 today. - Continue IV fluid and BiPAP (if patient can tolerate) to correct metabolic alkalosis. - Okay to give 40 meq of KCl supplement today. - Closely monitor K. (3) Metabolic alkalosis Current Visit: Yes Status: Acute Assessment and plan: - As suggested by initial ABG and chemistry. - Likely secondary to compensation for hypercapnic respiratory failure in the setting of contraction metabolic alkalosis from dehydration. - Contributes to current hypokalemia by inducing serum K+ influx into cells. - Improves as HCO3 decreases to 31 and decreased PCO2 on VBG. - Continue IV fluid and BiPAP (if patient can tolerate). - Closely monitor. (4) Bronchitis Current Visit: Yes Status: Acute Assessment and plan: - Most likely viral given positive PCR for Entero/Rhino virus - CXR on admission doesn't suggest pneumonia. - Continue azithromycin (Day2) for possible co-infection by bacteria. (5) DVT prophylaxis Current Visit: Yes Status: Acute Assessment and plan: - SQ heparin. - Subjective Interval history: 55 yo female with PMH of depression and tobacco abuse presented with worsening cough and shortness of breath. Patient was noted to have O2 sat 88% and potassium of 2.3 in ED. Patient was admitted on 06/20 for hypoxic & hypercapnic respiratory failure and hypokalemia. Patient received KCl via IV & PO. Nurse reports patient refused BiPAP use overnight and ABG this morning. Patient was seen and examined this morning. Patient reports shortness of breath better compared to yesterday. She also feel less congestion and is able to cough better. She denies fever, chest pain, abdominal pain, nausea, vomiting, diarrhea , dysuria, polyuria. - Constitutional Vitals: Temp Pulse Resp BP Pulse Ox 97.5 F L 92 16 110/75 95 06/21/16 10:37 06/21/16 10:37 06/21/16 10:37 06/21/16 10:37 06/21/16 10:37 General appearance: Present: A&O X 3, no acute distress, answers questions appropriately - Head Head exam: Present: atraumatic, normocephalic - Eye Eye exam: Present: PERRL, conjuntiva pink, sclera anicteric - Neck Neck exam general surgery: Present: supple, trachea midline. Absent: lymphadenopathy - Respiratory Respiratory exam: Present: CTAB. Absent: accessory muscle use, rales, rhonchi, wheezes - Cardiovascular Cardiovascular exam: Present: RRR, +S1, +S2. Absent: diastolic murmur, gallop, rubs, systolic murmur - GI/Abdominal GI/Abdominal exam: Present: normal bowel sounds, soft, no peritoneal signs. Absent: distended, tenderness - Extremities Exam Extremities exam: Present: warm, radial pulses palpable and symetrical. Absent : calf tenderness, cyanotic, pedal edema - Neurological Exam Neurological exam: Present: CN II-XII intact, oriented X3, no focal deficits. Absent: pronater drift, facial droop, speech deficit - Skin Skin exam: Present: dry, intact. Absent: rash Internal Medicine: Result - Labs CBC & Chem 7: 06/21/16 04:56 06/21/16 14:13 Labs: Short CBC 06/21/16 Range/Units 04:56 WBC 13.0 H (4.3-11.1) K/mcL Hgb 12.8 (11.5-15.4) g/dL Hct 39.7 (35.3-44.9) % Plt Count 307 (140-400) K/mcL Neutrophils # 8.5 (1.6-8.9) K/mcL BMP 06/20/16 06/21/16 14:58 04:56 Sodium 143 Potassium 4.1 3.2 L Chloride 102 Carbon Dioxide 31 H BUN 8 Creatinine 0.63 Glucose 93 Calcium 8.7 Liver Function 06/21/16 Range/Units 04:56 Total Bilirubin 0.1 L (0.2-1.2) mg/dL AST 13 (5-34) Units/L ALT 8 (0-55) Units/L Alkaline Phosphatase 58 (38-126) Units/L Albumin 2.6 L (3.5-5.0) g/dL - ABG Interpretation ABG results: ABG ABG pH 7.46 pH Units (7.32-7.45) H 06/20/16 08:39 ABG pCO2 63 mmHg (35-45) H 06/20/16 08:39 ABG pO2 53 mmHg (85-104) L 06/20/16 08:39 ABG O2 Saturation 89 % (95-98) L 06/20/16 08:39 PT/INR, D-dimer PT 11.1 Seconds (9.4-12.1) 06/19/16 22:54 D-Dimer 764 ng/mLFEU (0-500) H 06/19/16 22:54 Consult Discharge Plan - Plan Referrals: Asad Tinajero, PAC [Primary Care Provider] - <Rudy Porter T - Last Filed: 06/21/16 17:02> - Constitutional Vitals: Temp Pulse Resp BP Pulse Ox 98.1 F 103 16 116/68 92 L 06/21/16 14:32 06/21/16 14:32 06/21/16 14:32 06/21/16 14:32 06/21/16 14:32 Internal Medicine: Result - Labs CBC & Chem 7: 06/21/16 04:56 06/21/16 14:13 Labs: Short CBC 06/21/16 Range/Units 04:56 WBC 13.0 H (4.3-11.1) K/mcL Hgb 12.8 (11.5-15.4) g/dL Hct 39.7 (35.3-44.9) % Plt Count 307 (140-400) K/mcL Neutrophils # 8.5 (1.6-8.9) K/mcL BMP 06/21/16 06/21/16 04:56 14:13 Sodium 143 Potassium 3.2 L 3.3 L Chloride 102 Carbon Dioxide 31 H BUN 8 Creatinine 0.63 Glucose 93 Calcium 8.7 Liver Function 06/21/16 Range/Units 04:56 Total Bilirubin 0.1 L (0.2-1.2) mg/dL AST 13 (5-34) Units/L ALT 8 (0-55) Units/L Alkaline Phosphatase 58 (38-126) Units/L Albumin 2.6 L (3.5-5.0) g/dL - ABG Interpretation ABG results: ABG ABG pH 7.46 pH Units (7.32-7.45) H 06/20/16 08:39 ABG pCO2 63 mmHg (35-45) H 06/20/16 08:39 ABG pO2 53 mmHg (85-104) L 06/20/16 08:39 ABG O2 Saturation 89 % (95-98) L 06/20/16 08:39 PT/INR, D-dimer PT 11.1 Seconds (9.4-12.1) 06/19/16 22:54 D-Dimer 764 ng/mLFEU (0-500) H 06/19/16 22:54 - Attending Attestation I examined this patient and my medical decision-making was reviewed with the TEMPERING MACHINE OPERATOR/PA/Advanced Practice Nurse/Resident Physician. I agree with the documented findings, disposition and treatment plan as described except to the extent set forth below. 55 Y/O F with HTN, Depression, Vitamin B12 and Folate deficiency admitted for Acute hypercapneic and hypoxic respiratory failure secondary to bronchitis, Hypokalemia due to extracellular shift from metabolic alkalosis as a compensation of respiratory acidosis from possible COPD and Bronchitis. Seen at bedside, denied new complains, Physical exam unremarkable, no wheezing, VSS, Alert, awake, oriented, no skin rash, no pedal edema Refused any more BiPAP Labs and Imaging reviewed: Hypercapnea improving, contraction metabolic alkalosis improving, hypokalemia improving, 3.3, Assessment/Plan: Acute hypercapneic and hypoxic respiratory failure secondary to bronchitis, Hypokalemia due to extracellular shift from metabolic alkalosis as a compensation of respiratory acidosis from possible COPD and Bronchitis. Continue current meds, monitor K. Place on telemetry. Blood pressure is acceptable for now, will start on Norvasc 5-10mg po prn. Rest of documentation as in residents documentation
[2016-06-21 11:51] LABS: VBG HCO3 35.3 mEq/L (21-27); VBG PH 7.44 pH Units (7.32-7.42)
[2016-06-22] MEDS: Ipratropium/Albuterol Neb 3 ML IH SCH ×4 (04:31→23:15)
[2016-06-22] MEDS: *HR* Heparin 5,000 UNIT/ML VIAL SQ SCH ×3 (06:25→22:20)
[2016-06-22] MEDS: *HR* OxyCODONE Immed Rel 5 MG TABLET PO PRN ×2 (06:29→14:06)
[2016-06-22 06:57] LABS: Basophils # 0.1 K/mcL (0.0-0.2); Basophils % 0.3 %; Eosinophils % 0.2 %; Hematocrit 35.4 % (35.3-44.9); Hemoglobin 11.5 g/dL (11.5-15.4); Immature Granulocytes % 0.5 % (0-4); Lymphocytes # 5.4 K/mcL (0.6-4.6); Lymphocytes % 31.9 %; Mean Corpuscular HGB Conc 32.5 g/dL (31.6-35.5); Mean Corpuscular Hemoglobin 29.2 pg (28.0-33.3); Mean Corpuscular Volume 89.8 fL (83.0-100.0); Mean Platelet Volume 11.9 fL (9.4-12.4); Monocytes # 0.9 K/mcL (0.0-1.3); Monocytes % 5.3 %; Neutrophils # 10.5 K/mcL (1.6-8.9); Platelet Count 289 K/mcL (140-400); Red Blood Count 3.94 M/mcL (3.82-4.97); Red Cell Distribution Width 13.9 % (11.5-14.5); Segmented Neutrophils % 61.8 %
[2016-06-22 07:09] LABS: BUN/Creatinine Ratio 15 (6-26); Blood Urea Nitrogen 9 mg/dL (7-20); Calcium 8.1 mg/dL (8.6-10.8); Carbon Dioxide 28 mEq/L (19-29); Chloride 105 mEq/L (98-109); Glucose 86 mg/dL (70-99); Magnesium 1.7 mg/dL (1.6-2.6); Osmolality,Calculated 294 (280-300); Potassium 3.3 mEq/L (3.5-4.5); Sodium 143 mEq/L (136-145); eGFR For African Americans > 60 (> 60); eGFR For Non-African Americans > 60 (> 60)
[2016-06-22] MEDS: predniSONE 20 MG TABLET PO SCH (10:02)
[2016-06-22] MEDS: Azithromycin 250 MG TABLET PO SCH (10:02)
[2016-06-22] MEDS: Venlafaxine XR (24 HR) 150 MG CAP.ER.24H PO SCH (10:04)
[2016-06-22] MEDS: Nicotine 21 MG PATCH.TD24 TD SCH (10:13)
[2016-06-22] MEDS: diazePAM 5 MG TABLET PO PRN (10:13)
--- NOTE | 2016-06-22 19:12 | Internal Med Progress Note ---
Date of Encounter: 06/22/16 Time of Encounter: 20:42 - Assessment and plan (1) Hypokalemia Current Visit: Yes Status: Acute (2) Acute respiratory failure with hypoxia and hypercapnia Current Visit: Yes Status: Acute (3) Metabolic alkalosis Current Visit: Yes Status: Acute (4) URI with cough and congestion Current Visit: Yes Status: Acute (5) Heavy cigarette smoker (20-39 per day) Current Visit: Yes Status: Chronic (6) Acute bronchitis and bronchiolitis Current Visit: Yes Status: Acute Assessment and plan: # Acute resp failure with hypoxia and hypercapnia: On admission with ABG showing hypoxia and hypercapnea. She has currently improved. Rmains on 2 l of oxygen. COntinue antibiotics and bronchodilators. # Leukocytosis: Likely related to demargination from steroids. Monitor. # Hypokalemia: In setting of contraction alkalosis. Has improved. 3.3 today. Replete as needed. # Metabolic alkalosis: Compensatory alkalosis in seeting of resp acidosis and dehydration. On IV fluids # Bronchitis: PCR positive for entero/rhino virus, supportive care. CXR negative for pneumonia. # Subclinicalhypothyroidism: TSH slightly elevated with normal freeT3 and T4. Repeat labs as outpt. # DVT Prophylaxis: Sub q heparin - Time Spent With Patient 25 - 35 minutes - Subjective Interval history: Patient seen and examined at bedside. SOB has improved. Reports using BIPAP overnight. Remains on 2 l of oxygen. Denies any chest pain, palpitations. Labs reviewed, WBC elevated at 17, potassium 3.3, with cr of 0.59. - Constitutional Vitals: Temp Pulse Resp BP Pulse Ox 98.1 F 88 16 123/74 90 L 06/22/16 15:35 06/22/16 15:35 06/22/16 16:23 06/22/16 16:23 06/22/16 16:23 General appearance: Present: A&O X 3, no acute distress, answers questions appropriately - Head Head exam: Present: atraumatic, normocephalic - Eye Eye exam: Present: PERRL, conjuntiva pink, sclera anicteric Pupils: Present: PERRL - Neck Neck exam general surgery: Present: supple, trachea midline. Absent: lymphadenopathy - Respiratory Respiratory exam: Present: CTAB, rhonchi, wheezes. Absent: accessory muscle use , rales - Cardiovascular Cardiovascular exam: Present: RRR, +S1, +S2. Absent: diastolic murmur, gallop, rubs, systolic murmur - GI/Abdominal GI/Abdominal exam: Present: normal bowel sounds, soft, no peritoneal signs. Absent: distended, tenderness - Extremities Exam Extremities exam: Present: warm, radial pulses palpable and symetrical. Absent : calf tenderness, cyanotic, pedal edema - Neurological Exam Neurological exam: Present: CN II-XII intact, oriented X3, no focal deficits. Absent: pronater drift, facial droop, speech deficit - Skin Skin exam: Present: dry, intact Internal Medicine: Result - Labs CBC & Chem 7: 06/22/16 06:00 06/22/16 06:00 Labs: Short CBC 06/22/16 Range/Units 06:00 WBC 17.0 H (4.3-11.1) K/mcL Hgb 11.5 (11.5-15.4) g/dL Hct 35.4 (35.3-44.9) % Plt Count 289 (140-400) K/mcL Neutrophils # 10.5 H (1.6-8.9) K/mcL BMP 06/22/16 06:00 Sodium 143 Potassium 3.3 L Chloride 105 Carbon Dioxide 28 BUN 9 Creatinine 0.59 Glucose 86 Calcium 8.1 L - ABG Interpretation ABG results: ABG ABG pH 7.46 pH Units (7.32-7.45) H 06/20/16 08:39 ABG pCO2 63 mmHg (35-45) H 06/20/16 08:39 ABG pO2 53 mmHg (85-104) L 06/20/16 08:39 ABG O2 Saturation 89 % (95-98) L 06/20/16 08:39 PT/INR, D-dimer PT 11.1 Seconds (9.4-12.1) 06/19/16 22:54 D-Dimer 764 ng/mLFEU (0-500) H 06/19/16 22:54 Consult Discharge Plan - Plan Referrals: Asad Tinajero, PAC [Primary Care Provider] -
[2016-06-23] MEDS: Ipratropium/Albuterol Neb 3 ML IH SCH ×2 (04:15→10:40)
[2016-06-23] MEDS: *HR* OxyCODONE Immed Rel 5 MG TABLET PO PRN ×2 (06:17→16:00)
[2016-06-23] MEDS: *HR* Heparin 5,000 UNIT/ML VIAL SQ SCH (06:17)
[2016-06-23 08:08] LABS: Basophils # 0.1 K/mcL (0.0-0.2); Basophils % 0.3 %; Eosinophils # 0.1 K/mcL (0.0-0.6); Eosinophils % 0.4 %; Hematocrit 35.6 % (35.3-44.9); Hemoglobin 11.9 g/dL (11.5-15.4); Immature Granulocytes % 0.4 % (0-4); Lymphocytes # 6.5 K/mcL (0.6-4.6); Mean Corpuscular HGB Conc 33.4 g/dL (31.6-35.5); Mean Corpuscular Hemoglobin 29.4 pg (28.0-33.3); Mean Corpuscular Volume 87.9 fL (83.0-100.0); Monocytes % 5.9 %; Neutrophils # 8.7 K/mcL (1.6-8.9); Platelet Count 297 K/mcL (140-400); Red Blood Count 4.05 M/mcL (3.82-4.97); Red Cell Distribution Width 13.7 % (11.5-14.5)
[2016-06-23 08:17] LABS: BUN/Creatinine Ratio 20 (6-26); Blood Urea Nitrogen 12 mg/dL (7-20); Calcium 8.3 mg/dL (8.6-10.8); Carbon Dioxide 28 mEq/L (19-29); Chloride 104 mEq/L (98-109); Glucose 86 mg/dL (70-99); Osmolality,Calculated 293 (280-300); Sodium 142 mEq/L (136-145); eGFR For African Americans > 60 (> 60); eGFR For Non-African Americans > 60 (> 60)
[2016-06-23] MEDS: Nicotine 21 MG PATCH.TD24 TD SCH (09:21)
[2016-06-23] MEDS: predniSONE 20 MG TABLET PO SCH (09:22)
[2016-06-23] MEDS: Venlafaxine XR (24 HR) 150 MG CAP.ER.24H PO SCH (09:22)
[2016-06-23] MEDS: Azithromycin 250 MG TABLET PO SCH (09:22)
[2016-06-23] MEDS ORDERED: Potassium Chloride Elixir 20 MEQ/15 ML UDC PO ONE (11:57)
--- NOTE | 2016-06-23 14:12 | Discharge Summary ---
Date of Encounter: 06/24/16 Time of Encounter: 09:51 - Discharge Diagnosis (1) Hypokalemia Priority: Secondary Status: Acute (2) Acute respiratory failure with hypoxia and hypercapnia Priority: Primary Status: Acute (3) Metabolic alkalosis Priority: Primary Status: Acute (4) URI with cough and congestion Priority: Primary Status: Acute (5) Heavy cigarette smoker (20-39 per day) Priority: Secondary Status: Chronic (6) Acute bronchitis and bronchiolitis Priority: Primary Status: Acute - Discharge Medications Prescriptions: PredniSONE 40 mg PO DAILY #6 tablet Home Medications: Diazepam [Valium] 5 mg PO TID PRN 11/02/14 [History] Venlafaxine XR (24 HR) [Effexor XR] 150 mg PO DAILY 11/02/14 [History] Buprenorphine HCl [Subutex] 8 mg PO BID 06/20/16 [History] PredniSONE 40 mg PO DAILY #6 tablet 06/23/16 [Rx] Allergies/Adverse Reactions: Allergies No Known Allergies Allergy (Verified 08/06/15 11:23) Date of admission: 06/20/16 11:49 Primary care physician: Asad Tinajero - Patient Status Disposition: Home, Self-Care Condition: Good Overall status at discharge: patient is back to baseline - Discharge Instructions Follow Up With: Asad Tinajero, PAC [Primary Care Provider] - (Please follow up with Dr. Tinajero's office in the next 5-7 days Thank you!!) - Diet and Activity Activity: increase activity as tolerated Diet: advance to your usual diet Hospital course: M55 y/o femlae with pmh of recurrent bronchitis, smoking admitted to hospital with acute hypoxic and hypercapneic respiratory failure. Patient treated with IV antibiotics ad steroids with improvement. SHe is currently back to her baseline oxygen requirement. Patient hypokalemic on admission in setting of contraction alkalosis which imporved with IV fluid hyration. Patient currently abck to baseline , clinically stable adn is discharged home on PO antibiotics and steroids to be continued. She is recommended to f/u as outpt with PCP in one week. - Time Spent with Patient Total time spent providing and/or coordinating discharge services: Greater than 30 minutes - Constitutional Vitals: Temp Pulse Resp BP Pulse Ox 98.1 F 91 20 134/66 93 L 06/23/16 10:57 06/23/16 10:57 06/23/16 10:57 06/23/16 10:57 06/23/16 10:57 General appearance: Present: A&O X 3, no acute distress, answers questions appropriately - Head Head exam: Present: atraumatic, normocephalic - Eye Eye exam: Present: PERRL, conjuntiva pink, sclera anicteric Pupils: Present: PERRL - Neck Neck exam general surgery: Present: supple, trachea midline. Absent: lymphadenopathy - Respiratory Respiratory exam: Present: CTAB. Absent: accessory muscle use, rales, rhonchi, wheezes - Cardiovascular Cardiovascular exam: Present: RRR, +S1, +S2. Absent: diastolic murmur, gallop, rubs, systolic murmur - GI/Abdominal GI/Abdominal exam: Present: normal bowel sounds, soft, no peritoneal signs. Absent: distended, tenderness - Extremities Exam Extremities exam: Present: warm, radial pulses palpable and symetrical. Absent : calf tenderness, cyanotic, pedal edema - Neurological Exam Neurological exam: Present: CN II-XII intact, oriented X3, no focal deficits. Absent: pronater drift, facial droop, speech deficit - Skin Skin exam: Present: dry, intact
[2016-06-23 14:54] VITALS: BP 120/66
== END 2016-06-23 16:30 | disposition home or self-care (01) | DRG 189 ==
LOC: EMEROO 22:16 → 3BNU 22:16 → SUATTDRO 06-20 01:16 → 3BNU 06-20 01:50
PROVIDERS: ADMIT Pediatrics; ATTEND Internal Medicine

== ENCOUNTER 2021-05-21 16:35 | Inpatient (IN) ==
[2021-05-21 19:01] LABS: Basophils # 0.1 K/mcL (0.0-0.2); Basophils % 0.7 %; Eosinophils # 0.1 K/mcL (0.0-0.6); Eosinophils % 0.8 %; Hemoglobin 17.5 g/dL (11.5-15.4); Immature Granulocytes % 0.4 % (0-4); Lymphocytes # 2.6 K/mcL (0.6-4.6); Lymphocytes % 18.5 %; Mean Corpuscular HGB Conc 30.8 g/dL (31.6-35.5); Mean Corpuscular Hemoglobin 28.8 pg (28.0-33.3); Mean Corpuscular Volume 93.7 fL (83.0-100.0); Mean Platelet Volume 11.6 fL (9.4-12.4); Monocytes % 7.1 %; Neutrophils # 10.2 K/mcL (1.6-8.9); Platelet Count 272 K/mcL (140-400); Red Blood Count 6.07 M/mcL (3.82-4.97); Red Cell Distribution Width 14.3 % (11.5-14.5); Segmented Neutrophils % 72.5 %
[2021-05-21 19:02] LABS: Hematocrit 56.9 % (35.3-44.9)
[2021-05-21 19:13] LABS: Bacteria,Urine Few per hpf (None-Few); Bilirubin,Urine Negative (Negative); Blood,Urine Trace (Negative); Clarity,Urine Turbid (Clear); Color,Urine Yellow (Yellow); Glucose,Urine (UA) Normal (Normal); Ketones,Urine Negative (Negative); Leukocyte Esterase,Urine Small (Negative); Mucus,Urine Few per lpf (None-Few); Nitrite,Urine Negative (Negative); Protein,Urine 50 mg/dL (Neg-Trace); Specific Gravity,Urine 1.029 (1.010-1.025); Squamous Epithelial Cell,Urine Moderate per hpf (None-Few)
[2021-05-21 19:22] LABS: Troponin I 0.04 ng/mL (< 0.04)
[2021-05-21 19:25] LABS: Influenza A PCR Negative (Negative); Influenza B PCR Negative (Negative); Resp. Syncytial Virus PCR Negative (Negative)
[2021-05-21 19:29] LABS: BUN/Creatinine Ratio 15 (6-26); Blood Urea Nitrogen 9 mg/dL (8-23); Calcium 9.6 mg/dL (8.6-10.3); Carbon Dioxide 45 mEq/L (23-29); Chloride 87 mEq/L (98-107); Glucose 97 mg/dL (70-105); Osmolality,Calculated 287 (280-300); Potassium 2.5 mEq/L (3.5-5.1); Sodium 139 mEq/L (136-145); eGFR For African Americans > 60 (> 60); eGFR For Non-African Americans > 60 (> 60)
[2021-05-21 19:29] LABS: SARS-CoV-2 by PCR (In House) Negative (Negative)
[2021-05-21] MEDS ORDERED: Potassium Chloride Elixir 20 MEQ/15 ML UDC PO ONE (19:36)
[2021-05-21] MEDS ORDERED: Isovue-370 500 ML BOTTLE IVP ONE (19:52)
[2021-05-21] MEDS ORDERED: Aspirin 325 MG TABLET PO ONE (20:01)
[2021-05-21] MEDS ORDERED: Acetaminophen 325 MG TABLET PO PRN (21:14)
[2021-05-21] MEDS ORDERED: Melatonin 3 MG TABLET PO PRN (21:14)
[2021-05-21] MEDS ORDERED: *HR* OxyCODONE Immed Rel 5 MG TABLET PO PRN (21:14)
[2021-05-21] MEDS ORDERED: Ondansetron 4 MG/2 ML VIAL IVP PRN (21:14)
[2021-05-21] MEDS ORDERED: *HR* Promethazine 25 MG/ML VIAL IM PRN (21:14)
[2021-05-21] MEDS ORDERED: Naloxone 0.4 MG/ML INJ IVP PRN (21:14)
[2021-05-21] MEDS ORDERED: *HR* HYDROcodone/Acet 5/325 mg TABLET PO PRN (21:14)
[2021-05-21] MEDS ORDERED: Ipratropium/Albuterol Neb 3 ML IH PRN (21:35)
[2021-05-21] MEDS ORDERED: methylPREDNISolone 125 MG/2 ML VIAL IVP ONE (21:36)
[2021-05-21 21:52] LABS: VBG HCO3 42 mEq/L (21-27); VBG PCO2 65 mmHg (41-51); VBG PH 7.42 pH Units (7.32-7.42); VBG PO2 60 mmHg (25-50)
[2021-05-21] MEDS: 0.9 % Sodium Chloride w KCl 20 MEQ/1,000 ML MLS IVC SCH (22:01)
[2021-05-21] MEDS ORDERED: Magnesium Sulfate 1 GM/102 ML PIGGYBACK IVPB ONE (22:10)
[2021-05-21] MEDS: Ipratropium/Albuterol Neb 3 ML IH SCH (23:10)
[2021-05-21] MEDS: *HR* Buprenorphine HCl 8 MG TAB.SUBL SL SCH (23:39)
[2021-05-22 00:33] LABS: Basophils # 0.1 K/mcL (0.0-0.2); Basophils % 0.6 %; Eosinophils % 0.3 %; Hemoglobin 17.5 g/dL (11.5-15.4); Immature Granulocytes % 0.3 % (0-4); Lymphocytes % 6.7 %; Mean Corpuscular HGB Conc 31.8 g/dL (31.6-35.5); Mean Corpuscular Hemoglobin 29.5 pg (28.0-33.3); Mean Corpuscular Volume 92.7 fL (83.0-100.0); Mean Platelet Volume 11.6 fL (9.4-12.4); Monocytes # 0.2 K/mcL (0.0-1.3); Monocytes % 1.6 %; Neutrophils # 13.5 K/mcL (1.6-8.9); Platelet Count 279 K/mcL (140-400); Red Blood Count 5.93 M/mcL (3.82-4.97); Red Cell Distribution Width 14.5 % (11.5-14.5); Segmented Neutrophils % 90.5 %; White Blood Count 14.9 K/mcL (4.3-11.1)
[2021-05-22 00:42] LABS: INR 1.1; Prothrombin Time 12.2 Seconds (9.4-12.1)
[2021-05-22 01:44] LABS: Alanine Aminotransferase 8 Units/L (7-52); Albumin 3.5 g/dL (3.5-5.7); Albumin/Globulin Ratio 0.9 (1.1-2.2); Alkaline Phosphatase 62 Units/L (34-104); Aspartate Amino Transferase 16 Units/L (13-39); BUN/Creatinine Ratio 12 (6-26); Bilirubin,Total 0.6 mg/dL (0.3-1.0); Blood Urea Nitrogen 7 mg/dL (8-23); Carbon Dioxide 42 mEq/L (23-29); Chloride 90 mEq/L (98-107); Chol/HDL Ratio 3.2 (0-4.9); Cholesterol 149 mg/dL (< 200); Globulin 3.8 g/dL (2.4-3.5); Glucose 154 mg/dL (70-105); HDL Cholesterol 46 mg/dL (40-59); LDL Cholesterol,Calculated 84 mg/dL (< 100); Magnesium 1.7 mg/dL (1.6-2.6); Osmolality,Calculated 285 (280-300); Potassium 3.5 mEq/L (3.5-5.1); Sodium 137 mEq/L (136-145); Total Protein 7.3 g/dL (6.4-8.9); Triglycerides 97 mg/dL (< 150); eGFR For African Americans > 60 (> 60); eGFR For Non-African Americans > 60 (> 60)
[2021-05-22] MEDS: Ipratropium/Albuterol Neb 3 ML IH SCH ×5 (04:01→20:28)
[2021-05-22] MEDS: Levothyroxine 25 MCG TABLET PO SCH (05:49)
[2021-05-22] MEDS: *HR* Enoxaparin 40 MG/0.4 ML SYRINGE SQ SCH (05:49)
[2021-05-22 09:08] LABS: ABG Base Excess 11 mEq/L (-2 to 3); ABG HCO3 41 mEq/L (21-27); ABG Oxygen Saturation 86 % (95-98); ABG PCO2 71 mmHg (35-45); ABG PH 7.37 pH Units (7.32-7.45); ABG PO2 55 mmHg (85-104); ABG TCO2 43 mEq/L (20-26)
[2021-05-22] MEDS ORDERED: Haloperidol Lactate 5 MG/ML VIAL IVP ONE (09:24)
[2021-05-22] MEDS: predniSONE 20 MG TABLET PO SCH (09:37)
[2021-05-22] MEDS: Venlafaxine XR (24 HR) 75 MG CAP.ER.24H PO SCH (09:37)
[2021-05-22] MEDS: *HR* Buprenorphine HCl 8 MG TAB.SUBL SL SCH ×2 (09:37→20:33)
[2021-05-22] MEDS: Venlafaxine XR (24 HR) 150 MG CAP.ER.24H PO SCH (09:38)
[2021-05-22] MEDS: 0.9 % Sodium Chloride w KCl 20 MEQ/1,000 ML MLS IVC SCH (09:39)
[2021-05-22] MEDS ORDERED: diazePAM 2 MG TABLET PO PRN (15:38)
[2021-05-22] MEDS ORDERED: 0.9 % Sodium Chloride 500 ML IVC ONE (16:46)
[2021-05-22] MEDS ORDERED: 0.9 % Sodium Chloride 1,000 ML IVC SCH (18:00)
[2021-05-22] MEDS: Budesonide/Formoterol 160/4.5 1 PUFF INH IH SCH (20:30)
[2021-05-23] MEDS: Ipratropium/Albuterol Neb 3 ML IH SCH ×7 (00:14→23:34)
[2021-05-23 02:53] LABS: BUN/Creatinine Ratio 20 (6-26); Blood Urea Nitrogen 12 mg/dL (8-23); Calcium 7.8 mg/dL (8.6-10.3); Carbon Dioxide 35 mEq/L (23-29); Chloride 102 mEq/L (98-107); Glucose 99 mg/dL (70-105); Osmolality,Calculated 290 (280-300); Phosphorous 3.4 mg/dL (2.7-4.5); Potassium 3.8 mEq/L (3.5-5.1); Sodium 140 mEq/L (136-145); eGFR For African Americans > 60 (> 60); eGFR For Non-African Americans > 60 (> 60)
[2021-05-23] MEDS: Levothyroxine 25 MCG TABLET PO SCH (05:15)
[2021-05-23] MEDS: *HR* Enoxaparin 40 MG/0.4 ML SYRINGE SQ SCH (05:15)
[2021-05-23] MEDS: Budesonide/Formoterol 160/4.5 1 PUFF INH IH SCH ×2 (07:27→20:02)
[2021-05-23] MEDS ORDERED: Azithromycin 250 MG TABLET PO SCH (09:00)
[2021-05-23] MEDS: Venlafaxine XR (24 HR) 150 MG CAP.ER.24H PO SCH (10:07)
[2021-05-23] MEDS: predniSONE 20 MG TABLET PO SCH (10:07)
[2021-05-23] MEDS: *HR* Buprenorphine HCl 8 MG TAB.SUBL SL SCH ×2 (10:08→20:52)
[2021-05-23] MEDS: Venlafaxine XR (24 HR) 75 MG CAP.ER.24H PO SCH (10:08)
[2021-05-23] MEDS: levoFLOXacin 750 MG TABLET PO SCH (17:58)
[2021-05-24] MEDS: Ipratropium/Albuterol Neb 3 ML IH SCH ×6 (03:32→23:17)
[2021-05-24] MEDS: *HR* Enoxaparin 40 MG/0.4 ML SYRINGE SQ SCH (05:49)
[2021-05-24] MEDS: Levothyroxine 25 MCG TABLET PO SCH (05:49)
[2021-05-24] MEDS: Budesonide/Formoterol 160/4.5 1 PUFF INH IH SCH ×2 (07:55→20:11)
[2021-05-24] MEDS: levoFLOXacin 750 MG TABLET PO SCH (09:19)
[2021-05-24] MEDS: Venlafaxine XR (24 HR) 150 MG CAP.ER.24H PO SCH (09:19)
[2021-05-24] MEDS: *HR* Buprenorphine HCl 8 MG TAB.SUBL SL SCH ×2 (09:19→19:54)
[2021-05-24] MEDS: Venlafaxine XR (24 HR) 75 MG CAP.ER.24H PO SCH (09:19)
[2021-05-24] MEDS: predniSONE 20 MG TABLET PO SCH (09:19)
[2021-05-24 09:31] LABS: Basophils % 0.2 %; Hematocrit 51.8 % (35.3-44.9); Immature Granulocytes % 0.3 % (0-4); Lymphocytes # 3.1 K/mcL (0.6-4.6); Mean Corpuscular HGB Conc 30.3 g/dL (31.6-35.5); Mean Corpuscular Hemoglobin 28.6 pg (28.0-33.3); Mean Corpuscular Volume 94.5 fL (83.0-100.0); Mean Platelet Volume 11.7 fL (9.4-12.4); Monocytes % 6.4 %; Neutrophils # 12.1 K/mcL (1.6-8.9); Platelet Count 298 K/mcL (140-400); Red Blood Count 5.48 M/mcL (3.82-4.97); Red Cell Distribution Width 14.7 % (11.5-14.5); Segmented Neutrophils % 74.1 %; White Blood Count 16.4 K/mcL (4.3-11.1)
[2021-05-24 09:33] LABS: Hemoglobin 15.7 g/dL (11.5-15.4)
[2021-05-25] MEDS: Ipratropium/Albuterol Neb 3 ML IH SCH ×3 (03:49→11:42)
[2021-05-25] MEDS: *HR* Enoxaparin 40 MG/0.4 ML SYRINGE SQ SCH (05:00)
[2021-05-25] MEDS: Levothyroxine 25 MCG TABLET PO SCH (05:00)
[2021-05-25] MEDS: Budesonide/Formoterol 160/4.5 1 PUFF INH IH SCH (07:59)
[2021-05-25] MEDS: Venlafaxine XR (24 HR) 150 MG CAP.ER.24H PO SCH (09:29)
[2021-05-25] MEDS: levoFLOXacin 750 MG TABLET PO SCH (09:29)
[2021-05-25] MEDS: *HR* Buprenorphine HCl 8 MG TAB.SUBL SL SCH (09:29)
[2021-05-25] MEDS: predniSONE 20 MG TABLET PO SCH (09:29)
[2021-05-25] MEDS: Venlafaxine XR (24 HR) 75 MG CAP.ER.24H PO SCH (09:29)
[2021-05-25 11:29] VITALS: BP 122/68; PULSE 108; TEMP 97.3
[2021-05-25 17:35] VITALS: O2SAT 89
== END 2021-05-25 15:26 | disposition home or self-care (01) | DRG 190 ==
LOC: EMEROOARM 16:35 → 3ANU 16:35 → SUATTDRO 20:25 → 3ANU 21:04
PROVIDERS: ADMIT Internal Medicine; ATTEND Internal Medicine